=== PATIENT | male | born 1985 | race Two or more races ===

== ENCOUNTER 2024-07-29 14:44 | Emergency (ER) | payer SELFPAY ==
[~2024-07-29] VITALS: Ht 165.1 cm; Wt 71.2 kg
--- NOTE | 2024-07-29 16:37 | ED.PDOC ---
History of Present Illness HPI Comments 38 y/o M presents with c/o right-lower chest wall discomfort and left foot rash, today. Patient endorses on having a discomfort sensation that is not pain around his chest area, intermittently, since 07/05/24 and rash to the top portion of his left foot for 2x months. He denies any recent injuries, sick contact, or additional relevant or pertinent information. He denies having any visible chest rashes, pain, fever, chills, or other associated symptoms or modifiers at this time. Vital signs were stable at arrival Chief Complaint: Rash Time Seen by MD: 15:45 Primary Care Provider: NONE Reviewed Notes: Nurses Notes, Medications, Allergies Information Source: Patient Mode of Arrival: Ambulatory Severity: Moderate Timing: Hours Duration: Since onset Prehospital treatment: None Past Medical History PAST MEDICAL HISTORY: Denies Surgical History: Denies all surgeries Family History Family History: Unknown Social History Smoker: Non-Smoker Alcohol: Denies ETOH Use Drugs: Denies Drug Use Lives In: Home Constitutional: denies: chills, diaphoresis, fatigue, fever, malaise, sweats, weakness, others EENTM: denies: blurred vision, double vision, ear bleeding, ear discharge, ear drainage, ear pain, ear ringing, eye pain, eye redness, hearing loss, mouth dontrell n, mouth swelling, nasal discharge, nose bleeding, nose congestion, nose pain, photophobia, tearing, throat pain, throat swelling, voice changes, others Respiratory: denies: cough, hemoptysis, orthopnea, SOB at rest, shortness of breath, SOB with excertion, stridor, wheezing, others Cardiovascular: denies: chest pain, dizzy spells, diaphoresis, Dyspnea on exertion, edema, irregular heart beat, left arm pain, lightheadedness, palpitations, PND, syncope, others Gastrointestinal: denies: abdomen distended, abdominal pain, blood streaked bowels, constipated, diarrhea, dysphagia, difficulty swallowing, hematemesis, melena, nausea, poor appetite, poor fluid intake, rectal bleeding, rectal pain, vomiting, others Genitourinary: denies: burning, dysuria, flank pain, frequency, hematuria, incontinence, penile discharge, penile sore, pain, testicle pain, testicle swelling, urgency, others Neurological: denies: dizziness, fainting, headache, left sided numbness, left sided weakness, numbness, paresthesia, pre-existing deficit, right sided numbness, right sided weakness, seizure, speech problems, tingling, tremors, weakness, others Musculoskeletal: reports: others (pain discomfort around right lower chest wall ); denies: back pain, gout, joint pain, joint swelling, muscle pain, muscle stiffness, neck pain Integumetry: reports: rash (left foot ); denies: bruises, change in color, change in hair/nails, dryness, laceration, lesions, lumps, wounds, others Allergic/Immunocompromised: denies: Difficulty Healing, Frequent Infections, Hives, Itching, others Hematologic/Lymphatic: denies: anemia, blood clots, easy bleeding, easy bruising, swollen glands, others Endocrine: denies: excessive hunger, excessive sweating, excessive thirst, excessive urination, flushing, intolerance to cold, intolerance to heat, unexplained weight gain, unexplained weight loss, others Psychiatric: denies: anxiety, bipolar disorder, depression, hopeless, panic disorder, schizophrenia, sleepless, suicidal, others Physical Exam General Appearance: Moderate Distress (Distress due to chest skin discomfort and foot discomfort.), Normal HEENT: Normal ENT Inspection, Pharynx Normal, TMs Normal Neck: Full Range of Motion, Non-Tender, Normal, Normal Inspection Respiratory: Chest Non-Tender, Lungs Clear, No Accessory Muscle Use, No Respiratory Distress, Normal Breath Sounds Cardiovascular: No Edema, No JVD, No Murmur, No Gallop, Normal Peripheral Pulses, Regular Rate/Rhythm Breast Exam: Deferred Gastrointestinal: No Organomegaly, Non Tender, No Pulsatile Mass, Normal Bowel Sounds, Soft Genitalia: Deferred Pelvic: Deferred Rectal: Deferred Extremities: No calf tenderness, Normal capillary refill, Normal inspection, Normal range of motion, Non-tender, No pedal edema Neurologic: Alert, 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 Patient states pain is burning and exquisite at times. Patient states the pain does occur sometimes in his right-sided back. Patient appears to have non rash shingles. Patient's left foot is remarkable for erythema and scaly skin conditions indicative of athlete's foot.) Lymphatic: No Adenopathy Was a procedure done? Was a procedure done?: No Differential Dx Considerations may include: shingles, Zoster sine herpete, skin contact dermatitis, cellulitis , athlete's foot X-Ray, Labs, Meds, VS Vital Signs Date Time Temp Pulse Resp B/P (MAP) Pulse Ox O2 Delivery O2 Flow Rate FiO2 07/29/24 16:44 101 16 98 Room Air 07/29/24 16:44 98.0 101 16 144/87 (106) 98 98.0 07/29/24 15:28 98.0 101 16 144/87 (106) 98 X-Ray, Labs, Meds, VS Comment Advised patient that I believe his chest wall and dermal concerns related to non rash forming shingles. Advised patient utilize antivirals and pain medication as needed. Advised patient has left foot concerns or athlete's foot. Advise utilizing medication as directed until completion. Time of 1ST Reevaluation: 16:53 Reevaluation 1ST: Unchanged Consultation: PCP Patient Education/Counseling: Diagnosis, Treatment Family Education/Counseling: Diagnosis, Treatment, No Family Present Departure 1 Departure Time of Disposition: 16:53 Impression: Primary Impression: Shingles (herpes zoster) polyneuropathy Additional Impression: Athletes foot Disposition: 01 HOME / SELF CARE / HOMELESS Condition: Stable Additional Instructions: Advise utilizing medication as directed until completion. Patient should follow up with primary care provider for discussions related to possible shingles immunization moving forward. e-Prescriptions Acetaminophen (Acetaminophen) 500 Mg Tab 500 MG PO Q4HP PRN, #30 TAB Prov: ELIANE REY PAC 07/29/24 Ibuprofen Micronized (Ibuprofen) 800 Mg Tab 800 MG PO Q8HP PRN, #30 TAB Prov: ELIANE REY PAC 07/29/24 Terbinafine HCl (Topical) (ft Athletes Foot Cream) 1 % Cre 1 % EX BID for 21 Days, #60 GM Prov: ELIANE REY 07/29/24 Acyclovir (ZOVIRAX TABLET) 400 Mg Tb 1 TAB PO Q6HP PRN for 7 Days, #28 TAB 1 Refill Prov: ELIANE REY 07/29/24 Discharged With: Self, Friend Critical Care Note Critical Care Time?: No Stability Stability form required: No Heart Score Heart Score: Heart Score Response (Comments) Value History N/A 0 EKG N/A 0 Age N/A 0 Risk Factors N/A 0 Troponin N/A 0 Total 0 I personally scribed for ELIANE REY PAC ([email or web address]) on 07/29/24 at 16:37. Electronically submitted by Magen Espinoza ([email or web address]). ELIANE REY PAC Jul 29, 2024 16:37
[2024-07-29 16:44] VITALS: BP 144/87; PULSE 101; RESP 16; TEMP 98; O2SAT 98
[2024-07-29] MEDS ORDERED: ACYC400T16 PO (16:58)
[2024-07-29] MEDS ORDERED: IBUP-1455 PO (16:58)
[2024-07-29] MEDS ORDERED: TERB1CRE EX (16:58)
[2024-07-29] MEDS ORDERED: ACET500T58 PO (16:58)
== END 2024-07-29 17:14 | disposition home or self-care (01) ==
LOC: ER 14:44
DX: B35.3 Tinea pedis (principal); G62.89 Other specified polyneuropathies